=== PATIENT | male | born 1995 | race African-American/Black ===

== ENCOUNTER 2018-06-22 10:02 | Emergency (ER) | payer OTHER ==
[2018-06-22] MEDS ORDERED: Ondansetron ODT 4 MG TAB ONE (10:21)
== END 2018-06-22 10:43 | disposition home or self-care (01) ==
LOC: BURERS 10:02
DX: A08.4 Viral intestinal infection, unspecified (principal); F17.210 Nicotine dependence, cigarettes, uncomplicated
CPT/HCPCS: 99283; Q0162

== ENCOUNTER 2018-12-26 05:03 | Emergency (ER) | payer OTHER, SELFPAY ==
[2018-12-26 05:33] LABS: Clarity Clear (Clear)
[2018-12-26 05:34] LABS: Bilirubin Negative (Negative); Blood, Urine Negative (Negative); Glucose, Urine (Dipstick) Negative (Negative); Leukocyte Trace (Negative); Nitrite Negative (Negative); Protein, Urine (Dipstick) Trace mg/dL (Neg-Trace); Specific Gravity, Urine 1.031 (1.002-1.036); pH, Urine 5.5 (5.0-9.0)
[2018-12-26 05:39] LABS: Bacteria/HPF 1+ HPF (None Seen); Squamous Epithelial 0-3 HPF (0-3)
[2018-12-26 05:41] LABS: Other Microscopic Description 3+MUCUS
[2018-12-26] MEDS ORDERED: cefTRIAXone\\ROCEPHIN 500 MG VIAL ONE (05:45)
[2018-12-29 01:44] LABS: Chlamydia by PCR Not Detected (NotDetected); GC by PCR Not Detected (NotDetected)
== END 2018-12-26 06:15 | disposition home or self-care (01) ==
LOC: BURERS 05:03
DX: N34.1 Nonspecific urethritis (principal); F17.210 Nicotine dependence, cigarettes, uncomplicated
CPT/HCPCS: 81003; 81015; 87086; 87491; 87591; 96372; J0696